=== PATIENT | female | born 1960 | race Caucasian/White ===

== ENCOUNTER → 2016-07-18 | Outpatient (CLI) | payer OTHER ==
--- NOTE | 2016-07-18 18:33 | Diagnostic Imaging Report ---
PET/CT INDICATION: Lung cancer to the prior TECHNIQUE: After intravenous administration of 14.39 mCi of F18-FDG, a series of overlapping emission and transmission PET images was obtained. In the coronal, transaxial and sagittal planes, the area imaged extended from the skull base through the upper thighs. FINDINGS: There are no previous PET/CT or cross-sectional imaging studies are available for comparison. Reportedly, the patient has a diagnosis of lung cancer of the right upper lobe. On this study, there is a spiculated hypermetabolic mass in the right mid lung measuring approximately 1.8 x 2.0 cm. This mass has a maximum SUV of 9.6 and should be considered neoplastic until proven otherwise. There is also a small focus of slightly increased activity in the right hilum. This has a maximum SUV of 3.6. This finding is suspicious but not conclusive for neoplasm. There is no other hypermetabolic activity to suggest the presence of neoplasm. The CT images do show that there is a diffuse alveolar/interstitial infiltrate involving the right mid lung in the area of the spiculated mass. Most likely, this is due to pneumonia/atelectasis. The lungs are otherwise clear. There is a 1.4 cm rounded area of low density in the left lobe of the thyroid. This finding is not hypermetabolic and consequently most likely benign. The intracranial contents, where visualized, are unremarkable. There are small air-fluid levels in each maxillary antrum consistent with sinusitis. IMPRESSION: 1. There is a hypermetabolic spiculated mass in the right mid lung. This finding should be considered neoplastic until proven otherwise. 2. The small focus of slightly increased metabolic activity in the right hilum is suspicious but not conclusive for neoplastic disease. There is no other hypermetabolic activity to suggest metastatic disease. 3. There is pneumonia/atelectasis about the spiculated mass in the right mid lung. There is no acute abnormality identified otherwise. Dictated by: Dictated on workstation # [id number]
== END ==
LOC: RAD 10:26
PROVIDERS: ATTEND Internal Medicine Hematology & Oncology
DX: C34.90 Malignant neoplasm of unspecified part of unspecified bronchus or lung (principal)

== ENCOUNTER 2016-07-27 13:08 | Outpatient (RCR) | payer OTHER ==
--- OUTSIDE RECORDS SUMMARY | 2016-07-12 09:29 | XMS REPORT ---
Author Author [facility] Organization [facility] Address [address], [place] [address] Phone [phone] Care Team Providers Care Concrete Laborer Name Role Phone ANDREW CHRISTIANSON, JOSE ANGEL PP [phone] JOSE ANGEL MORALES MD, PP [phone] Summary purpose TRANSITION OF CARE AUTO GENERATION Chief Complaint and Reason for Visit Admit Diagnosis 1 PNE HYPOXIA Problem list No authorized problems tracked for continuity of care are available for this visit. Encounters The following conditions tracked for encounter diagnoses were recorded for this visit: Finding or Diagnosis Status Certainty Chronicity Onset *PNEUMONIA Active Medications No medications recorded for this patient visit Allergies, adverse reactions, alerts Allergen Category Ingredient Status Reaction Severity Onset No known drug allergies No known drug allergies No known drug allergies Confirmed or Verified Immunizations No immunizations recorded for this patient visit Relevant diagnostic tests and/or laboratory data RESULTS [id number]:53:00 Discharge Summary DISCHARGE SUMMARY HISTORY:This 54-year-old female presented to the emergency room with difficulty breathing, head congestion, sore throat, wheezing. PHYSICAL EXAMINATION:Upon admission:VITAL SIGNS:Temperature 98.3, pulse 95, blood pressure 109/70, respirations 20, and oxygen saturation 95% on 2 liters. HEENT:Clear. No frontal or maxillary sinus tenderness. NECK:Without adenopathy. LUNGS:Reveal expiratory wheezes bilaterally. No rales, rhonchi or retractions. HEART:Normal sinus rhythm. ABDOMEN:Soft and nontender. EXTREMITIES: Without edema. LABORATORY/X-RAY/ELECTROCARDIOGRAM DATA: CBC showed white count 10,000, hemoglobin 15.2. Chemistries showed electrolytes to be normal. Potassium of 3.3. Lactic acid 0.9. Blood cultures x2 showed no growth at 24 hours. Urinalysis was clear Mycoplasma was negative. Chest x-ray was clear. HOSPITAL COURSE: Following admission, the patient was started on intravenous fluids and Solu-Medrol and azithromycin and DuoNeb treatments.She was also started on 1 gram Rocephin IV daily. The patient noted significant improvement in her breathing status over the 24 hours of her hospitalization. She still had mild expiratory wheezing at the time of discharge. Her oxygen saturations dropped into the mid 80s with ambulation, but when she stopped walking, they returned to the mid 90s. The patient has been advised to discontinue smoking. MEDICATIONS: She is being discharged on Levaquin 500 milligrams daily for 7 days, tapering dose of prednisone 60 for 2 days, 40 mg for 3 days, 20 mg for 3 days, and 10 mg for 3 days. She will be seen in clinic in followup in a week. She will be continued on albuterol by nebulizer every 4 hours while awake and as needed at night. DIAGNOSES: 1. Acute bronchitis. 2. Exacerbation of chronic obstructive pulmonary disease. MD MARY Acosta/carlos 03/27/2015 09:53:11/03/27/2015 10:29:13 Clinic Code: cc: <START [facility] [address] [place] [address] <END HEADER> Routine Urinalysis [id number]:45:00 Result Normal Range Units Color YELLOW Clarity Clear Specific [place] 1.020 1.003-1.035 pH 5.5 4.5-8.0 Glucose NEGATIVE Bilirubin NEGATIVE Ketones 2+ Protein NEGATIVE Urobilinogen 0.2 0-0.2 E.U./dL Nitrites NEGATIVE Blood NEGATIVE Leukocytes NEGATIVE WBCs 0-5 RBCs 0-5 Squamous Epithelial Few Bacteria Occasional Blood Cultures [id number]:35:00 Blood Culture Plate Date and Time 03/25/2015 02:44 SourceBLOOD CULTURE REPORT NoGrowth at 1 day. Unless otherwise notified. Final report in 5 Days. Release Date/Time: 03/26/2015 10:45 CULTURE REPORT No growth in 5 days. Release Date/Time: 03/30/2015 06:24 [id number] Blood Culture Plate Date and Time 03/25/2015 02:44 SourceBLOOD CULTURE REPORT NoGrowth at 1 day. Unless otherwise notified. Final report in 5 Days. Release Date/Time: 03/26/2015 10:45 LEFT AC CULTURE REPORT No growth in 5 days. Release Date/Time: 03/30/2015 06:25 LEFT AC Chemistry :30:00 Result Normal Range Units Sodium 142 134-145 mEq/l Potassium L 3.3 3.5-5.1 mEq/l Chloride 101 98-107 mEq/l CO2 H 30.2 22-28 mEq/l Glucose H 107 70-105 mg/dl BUN 8 7-18 mg/dl Creatinine 0.75 0.6-1.0 mg/dl Calcium L 8.3 8.4-10.2 mg/dl TP - Total Protein 7.0 6.0-8.3 g/dl Albumin 3.5 3.5-5 g/dl Bilirubin - Total 0.4 0.1-1.0 mg/dl AST 16 10-42 IU/L ALT 20 12-65 IU/L ALP H 100 25-72 IU/L Osmolality 281.9 280-300 mOsm/L Albumin/Globulin Ratio 1.0 0-8 Anion GAP 10.8 8-16 BUN/Creatinine Ratio 10.7 10-20 Estimated GFR 80 >=60 mL/min/1.7 Lactic Acid 0.9 0.4-2.0 mmol/L Hematology :30:00 Result Normal Range Units WBC 10.0 4.8-10.8 103/uL RBC 4.5 4.2-5.4 106/uL HGB 15.2 12.0-16.0 g/dl HCT 44.8 36.9-47.0 % MCV H 100.0 81-99 FL MCH H 33.9 27-31 pg MCHC 33.9 33-37 g/dl RDW 12.0 11.5-15.5 % PLT 240 130-400 103/uL MPV 8.1 7.3-10.4 FL Neutro % H 70.9 40-70 % Lymph % L 16.7 20-40 % Smyth % 7.6 0-10.0 % Eos % 3.3 0-7.0 % Baso % 0.7 0-2 % Neutro # 7.1 1.5-7.5 103/uL Lymph # 1.7 0.9-4.0 103/uL Smyth # 0.8 0-0.8 103/uL Eos # 0.3 0-0.6 103/uL Baso # 0.1 0-0.1 103/uL Body Fluid [id number]:45:00 Result Normal Range Units pH 5.5 4.5-8.0 Radiology Results [id number] Chest XRay - Port - 1 View PACs Image DATE OF EXAM: 2014 RAD 0292-CHEST 1 VIEW PORT : RADIOLOGY REPORT DATE OF SERVICE: 03/25/15 HISTORY: Patient has acute shortness of breath. PORTABLE ONE VIEW CHEST 0235 HOURS The heart and mediastinum are unremarkable. The lungs are clear. No effusion is seen. IMPRESSION: Negative study of the chest. No evidence of pneumonia is seen including the lung bases. Laron Milian DO /wi 03/25/2015 06:25:00 / 03/25/2015 08:32:58 cc:Dr. Jose Angel Morales This document has been electronically Signed by: On: DATE OF EXAM: 2014 RAD 0292-CHEST 1 VIEW PORT : RADIOLOGY REPORT DATE OF SERVICE: 03/25/15 HISTORY: Patient has acute shortness of breath. PORTABLE ONE VIEW CHEST 0235 HOURS The heart and mediastinum are unremarkable. The lungs are clear. No effusion is seen. IMPRESSION: Negative study of the chest. No evidence of pneumonia is seen including the lung bases. Laron Milian DO /wi 03/25/2015 06:25:00 / 03/25/2015 08:32:58 cc:Dr. Jose Angel Morales This document has been electronically Signed by: LARON MILIAN DO On: [id number] PNE HYPOXIA Result Amended on 2015-03-25 at 11:30:50. Previous status was MA. PNE HYPOXIA [id number]:30:00 Result Normal Range Units MPV 8.1 7.3-10.4 FL History of procedures Procedure Code Code Type Description Date Performed Performing Physician 90503 CPT-4 ROUTINE VENIPUNCTURE 03-25-2015 LARON NEGRON 39051 CPT-4 ROUTINE VENIPUNCTURE 03-25-2015 LARON NEGRON 34167 CPT-4 WITHDRAWAL OF ARTERIAL BLOOD 03-25-2015 [facility] 38779 CPT-4 CHEST X-RAY 03-25-2015 [facility] 94074 CPT-4 COMPREHEN METABOLIC PANEL 03-25-2015 [facility] 51036 CPT-4 URINALYSIS, AUTO W/SCOPE 03-25-2015 [facility] 71009 CPT-4 ASSAY, BLOOD CARBON MONOXIDE 03-25-2015 [facility] 71565 CPT-4 BLOOD GASES W/O2 SATURATION 03-25-2015 [facility] 91178 CPT-4 BLOOD METHEMOGLOBIN ASSAY 03-25-2015 [facility] 99982 CPT-4 ASSAY OF LACTIC ACID 03-25-2015 [facility] 00954 CPT-4 COMPLETE CBC W/AUTO DIFF WBC 03-25-2015 [facility] 18142 CPT-4 MYCOPLASMA ANTIBODY 03-25-2015 [facility] 87297 CPT-4 BLOOD CULTURE FOR BACTERIA 03-25-2015 [facility] 70771 CPT-4 AIRWAY INHALATION TREATMENT 03-25-2015 [facility] 24286 CPT-4 AIRWAY INHALATION TREATMENT 03-25-2015 [facility] 38413 CPT-4 AIRWAY INHALATION TREATMENT 03-25-2015 [facility] 87630 CPT-4 AIRWAY INHALATION TREATMENT 03-25-2015 [facility] 16614 CPT-4 MEASURE BLOOD OXYGEN LEVEL 03-25-2015 [facility] 77957 CPT-4 HYDRATE IV INFUSION, ADD-ON 03-25-2015 [facility] 08192 CPT-4 THER/PROPH/DIAG IV INF, INIT 03-25-2015 [facility] 15037 CPT-4 THER/PROPH/DIAG IV INF ADDON 03-25-2015 [facility] 36773 CPT-4 TX/PROPH/DG ADDL SEQ IV INF 03-25-2015 [facility] 94049 CPT-4 TX/PRO/DX INJ NEW DRUG ADDON 03-25-2015 [facility] 00538 CPT-4 TX/PRO/DX INJ NEW DRUG SLEEP TECHNOLOGIST 03-25-2015 [facility] 25140 CPT-4 OBSERVATION CARE 03-25-2015 [facility] 86457 CPT-4 OBSERVATION CARE 03-25-2015 [facility] 39846 CPT-4 EMERGENCY DEPT VISIT 03-25-2015 LARON NEGRON 22990 CPT-4 EMERGENCY DEPT VISIT 03-25-2015 LARON NEGRON J0456 CPT-4 AZITHROMYCIN 03-25-2015 LARON NEGRON J0696 CPT-4 CEFTRIAXONE SODM 250MG INJ 03-25-2015 [facility] J2930 CPT-4 SOLU-MEDROL 125MG VIAL 03-25-2015 KELLEE FORDE J2930 CPT-4 SOLU-MEDROL 125MG VIAL 03-25-2015 [facility] J3480 CPT-4 INJ POTASSIUM CHLORIDE 03-25-2015 KELLEE FORDE J7030 CPT-4 NORMAL SALINE SOLUTION INFUS 03-25-2015 KELLE[facility] FORDE J7042 CPT-4 5% DEXTROSE/NORMAL SALINE 03-25-2015 LARON NEGRON J7620 CPT-4 ALBUTEROL IPRATROP NON-COMP 03-25-2015 LARON NEGRON J7620 CPT-4 ALBUTEROL IPRATROP NON-COMP 03-25-2015 LARON NEGRON J7620 CPT-4 ALBUTEROL IPRATROP NON-COMP 03-25-2015 LARON NEGRON J7620 CPT-4 ALBUTEROL IPRATROP NON-COMP 03-25-2015 [facility] Functional status Functional Status Finding Observation Time Hearing Prob Loc right [id number]:53 Vision Problems yes [id number]:53 Vision Correct Dev glasses xpath-functions" xmlns:xs="http://www.FonJax.org/2001/XMLSchema" /> xpath-functions" xmlns:xs="http://www.FonJax.org/2001/XMLSchema" />Comment: reading 01-62-517656:53 Ambulation Asst Dev none [id number]:53 Range of Motion full :29 Muscle Strength RUE 5 ROM full resist :29 Muscle Strength RLE 5 ROM full resist :29 Muscle Strength LUE 5 ROM full resist :29 Muscle Strength LLE 5 ROM full resist :29 Transfers independent :29 Ambulation up ad wayne :29 Balance steady : Bathing Assistance none :53 Eating Assistance none :53 Dressing Assistance none :53 Toileting Assistance none :53 Transfer Assistance none :53 Decline Slf Care/Mob no :53 Phys Cond Stable yes :53 Nutrition normal : Diet regular : Oral Cavity moist and intact : Teeth intact : Dental Hygiene good : Abdomen Appearance flat : Abdomen non-tender : Bowel Sounds present : NG Tube no : Feeding Tube none : Ojeda no :29 Cont Bladder Irr no : Ostomy no : Stool other (specify) : Urination other (specify) :29 Quality sym/unlabored : Cough absent : Secretions no : Secretion Consist thin : Secretion Color clear : Breath Sounds RUL wheezes :57 Breath Sounds RML wheezes :57 Breath Sounds RLL wheezes :57 Breath Sounds GAIDEL wheezes :57 Breath Sounds LLL wheezes :57 Airway natural :29 Oxygen no :17 Oxygen Mask Type nasal cannula :43 Oxygen Flow Rate ra :52 C-PAP no :29 BI-PAP no :29 New Infection pneumonia : Temp >100.4 no : Temp <96.8 no :29 Chills with rigors no : HR > 90bpm no : Respirations > 20 no : Systolic <90 no : headache stiff neck no : WBC > 79518 no : WBC < 4000 no : Rapid Resp no : IV Site Location RAC : IV Type peripheral : IV Site Information discontinued : IV Site Start Attmpt 1 times :30 IV Site Jorge Luis 20 :34 IV Site Appearance WNL :34 IV Site Color clear : IV Site Patent yes :34 Dressing Changed no (explain) :34 Dressing Type occlusive :34 Nursing Note Pt discharged home in stable conditon, amb off unit to personal vehicle. :33 Cognitive Status Finding Observation Time Learning Ability comprehends well : Neurological no :25 Psychological no :25 Physical no :25 Hearing yes : Boat Carpenter Needed no : Sign Language no : Emotional no :25 Vision no :25 Laguage no :25 Financial no :25 Vital signs Type Value Date Respiration Rate 18breaths per minute : Pulse 104beats per minute :17 Oxygen Saturation 94% : BP Systolic 113mmHg :17 BP Diastolic 63mmHg :17 Temperature 99.2F :17 Height 66inches :53 Weight 139.0LB :53 Social history Type Value Smoking Status CURRENT EVERY DAY SMOKER Treatment Plan No treatment plan text is available for this visit. Hospital discharge instructions Discharge Date/Time 03/25/15 1633 Relationship spouse/signif other Dismissal Condition good Disposition on DC home Valuables yes Valuable Type billfold/joyce Valuables Returned T patient DC Inst/Educ Give yes Exit Care Educ Given yes Med/Side Effects Rev yes DC Med Rec Rev yes PNE Vac none Flu Vac 2013 Tetanus Vac unknown Diet Explained yes Follow up appt already scheduled Follow Up Appt D/T 03/30/15 1000
[2016-07-27 15:58] LABS: BASOPHILS % (AUTO) 0 % (0-10); EOSINOPHILS # (AUTO) 0.1 10^3/uL (0.0-0.3); EOSINOPHILS % (AUTO) 1 % (0-10); LYMPHOCYTES # (AUTO) 1.2 X 10^3 (1.0-4.0); LYMPHOCYTES % (AUTO) 11 % (12-44); MEAN CORPUSCULAR HEMOGLOBIN 35 PG (25-34); MEAN CORPUSCULAR HGB CONC 35 G/DL (32-36); MEAN CORPUSCULAR VOLUME 100 FL (80-99); MONOCYTES # (AUTO) 0.3 X 10^3 (0.0-1.0); MONOCYTES % (AUTO) 3 % (0-12); NEUTROPHILS # (AUTO) 9.8 X 10^3 (1.8-7.8); NEUTROPHILS % (AUTO) 85 % (42-75); PLATELET COUNT 280 10^3/uL (130-400); RED CELL DISTRIBUTION WIDTH 13.5 % (10.0-14.5); WHITE BLOOD COUNT 11.4 10^3/uL (4.3-11.0)
[2016-07-27 16:59] LABS: ALANINE AMINOTRANSFERASE 19 U/L (0-55); ALBUMIN 4.2 G/DL (3.2-4.5); ANION GAP 8 MMOL/L (5-14); ASPARTATE AMINO TRANSFERASE 15 U/L (5-34); BILIRUBIN,TOTAL 0.4 MG/DL (0.1-1.0); BLOOD UREA NITROGEN 17 MG/DL (7-18); BUN/CREATININE RATIO 25; CALCIUM 9.2 MG/DL (8.5-10.1); CARBON DIOXIDE 26 MMOL/L (21-32); CHLORIDE 103 MMOL/L (98-107); CREATININE SERUM 0.68 MG/DL (0.60-1.30); GFR ESTIMATED > 60; GLUCOSE 168 MG/DL (70-105); POTASSIUM 4.1 MMOL/L (3.6-5.0); SODIUM 137 MMOL/L (135-145); TOTAL PROTEIN 6.6 G/DL (6.4-8.2)
== END 2016-08-24 13:10 | disposition home or self-care (01) ==
LOC: PAR 13:08
PROVIDERS: ATTEND Internal Medicine Hematology & Oncology
DX: C34.11 Malignant neoplasm of upper lobe, right bronchus or lung (principal); I27.82 Chronic pulmonary embolism; B00.89 Other herpesviral infection; J44.9 Chronic obstructive pulmonary disease, unspecified; F17.210 Nicotine dependence, cigarettes, uncomplicated; Z79.01 Long term (current) use of anticoagulants; Z79.899 Other long term (current) drug therapy
CPT/HCPCS: 36415; 80053; 85025; 99213; 99214

== ENCOUNTER → 2016-08-29 | Outpatient (CLI) | payer BC, OTHER ==
--- OUTSIDE RECORDS SUMMARY | 2016-08-29 13:56 | XMS REPORT | Continuity of Care Document ---
Author Author [facility] Organization [facility] Address Unknown Phone Unavailable Care Team Providers Care Helicopter Specialist Name Role Phone PCP Unavailable Source Comments Some departments are not documenting in the electronic medical record. If you do not see the information that you expected, contact Release of Information in the Health Information Management department at [phone] for further assistance in locating additional records.[facility] Active Allergies and Adverse Reactions Not on [...]
--- NOTE | 2016-08-31 07:59 | ECHOCARDIOGRAPHY REPORT ---
PROCEDURE PHYSICIAN: MARCY KEMP DATE OF PROCEDURE: 08/29/2016 TWO DIMENSIONAL ECHOCARDIOGRAM REPORT PRIMARY PHYSICIAN: OTHER PHYSICIAN: REFERRING PHYSICIAN: ORDERING PHYSICIAN: INDICATION FOR THE PROCEDURE: Abnormal EKG. MEASUREMENTS DERIVED VALUES LV DIAMETER (LAX) NORMALS NORMALS Diastolic 3.5 (3.6-5.2) Eject. Fract. 60% (60%+/-6%) Systolic (2.3-3.9) Diastolic Vol. % Shortening (0.22-0.42) Systolic Vol. Aortic Root IVS THICKNESS Diastolic 0.8 (0.6-1.1) LVPW THICKNESS Diastolic 0.8 (0.6-1.1) LA DIAMETER Systolic 2.7 (2.1-3.7) FINDINGS: 1. Technically suboptimal study. 2. The left ventricle is normal in size with normal contractility. Systolic function appeared to be normal. Estimated ejection fraction 60%. Endocardium was not well visualized in all segments. 3. The left atrium is normal in size. No clot or thrombus were seen within the left atrium. 4. The right atrium and right ventricle are normal in size. No clot or thrombus were seen within the right side. 5. Mitral valve is mildly calcified with mild mitral regurgitation noted by color Doppler flow. No mitral valve prolapse. No mitral valve stenosis. 6. Aortic valve leaflets were not well visualized. No significant aortic stenosis or regurgitation was seen. 7. Tricuspid valve is normal in morphology with mild tricuspid regurgitation noted by color Doppler flow. Doppler across tricuspid valve estimated pulmonary artery pressure of 21+ right atrial pressure. 8. Pulmonic valve is functioning normally. 9. No pericardial effusion. IN CONCLUSION: 1. Normal left ventricular size and systolic function. Estimated ejection fraction 60%. Endocardium was not well visualized in all segments. 2. Mild mitral regurgitation. Mild tricuspid regurgitation. 3. Estimated pulmonary artery pressure of 30 mmHg. Job ID: [id number] Dictated Date: 08/30/2016 16:47:30 Dentist Private Practice Date: 08/31/2016 07:55:47 / michael
== END ==
LOC: CARD 13:53
PROVIDERS: ATTEND Internal Medicine Cardiovascular Disease
DX: C34.91 Malignant neoplasm of unspecified part of right bronchus or lung (principal); I27.82 Chronic pulmonary embolism; Z82.49 Family history of ischemic heart disease and other diseases of the circulatory system; R94.31 Abnormal electrocardiogram [ECG] [EKG]; R06.02 Shortness of breath
CPT/HCPCS: 93306

== ENCOUNTER → 2016-08-30 | Outpatient (CLI) | payer BC, OTHER ==
[~2016-08-30] MED LIST: RT-ALBUTEROL SULF 2.5 MG/3 ML PRE-MIX VIAL ONE
--- OUTSIDE RECORDS SUMMARY | 2016-08-30 11:35 | XMS REPORT | Continuity of Care Document ---
Author Author [facility] Organization [facility] Address Unknown Phone Unavailable Care Team Providers Care Bend Up Name Role Phone PCP Unavailable Source Comments Some departments are not documenting in the electronic medical record. If you do not see the information that you expected, contact Release of Information in the Health Information Management department at [phone] for further assistance in locating additional records.[facility] Active Allergies and Adverse Reactions Not on [...]
== END ==
LOC: RT 11:31
PROVIDERS: ATTEND Internal Medicine Hematology & Oncology
DX: C34.11 Malignant neoplasm of upper lobe, right bronchus or lung (principal); I27.82 Chronic pulmonary embolism
CPT/HCPCS: 94060; 94640; 94726; 94729

== ENCOUNTER → 2016-08-30 | Outpatient (CLI) | payer BC, OTHER ==
[~2016-08-30] MED LIST changes: +REGADENOSON 0.4 MG/5 ML SYR (LEXISCAN) IV ONE; +RT-ALBUTEROL SULF 2.5 MG/3 ML PRE-MIX VIAL INH ONE; -RT-ALBUTEROL SULF 2.5 MG/3 ML PRE-MIX VIAL ONE
--- OUTSIDE RECORDS SUMMARY | 2016-08-30 11:30 | XMS REPORT | Continuity of Care Document ---
Author Author [facility] Organization [facility] Address Unknown Phone Unavailable Care Team Providers Care Slot Machine Repairer Name Role Phone PCP Unavailable Source Comments Some departments are not documenting in the electronic medical record. If you do not see the information that you expected, contact Release of Information in the Health Information Management department at [phone] for further assistance in locating additional records.[facility] Active Allergies and Adverse Reactions Not [...]
[2016-08-30] MEDS: CATHETER FLUSH 10 ML SYR IV PRN ×2 (12:12→13:15)
[2016-08-30 13:08] VITALS: BP 111/63
--- NOTE | 2016-08-31 10:21 | STRESS TEST ---
PROCEDURE PHYSICIAN: MARCY KEMP DATE OF PROCEDURE: 08/30/2016 LEXISCAN MYOVIEW STRESS TEST REPORT: INDICATION: Dyspnea. BASELINE HEART RATE: 90 BASELINE BLOOD PRESSURE: 111/63 BASELINE EKG: Sinus rhythm with no ischemic changes. IN SUMMARY: The patient was injected with 10.15 mCi of technetium 99 Myoview and the resting images were obtained. Then the patient received 0.4 mg of Lexiscan followed by 28.3 mCi of technetium 99 Myoview. Throughout the test, there were no EKG changes. The resting and stress images were reviewed and compared in the short axis, horizontal long axis, and vertical long axis views. Review of the images showed transient ischemic dilatation with TID value of 1.26. There is mild ischemia involving the mid to apical anterior septum and basal mid anterior wall. SSS is 6, SDS 4, TID value 1.26. On the gated images, the left ventricle is normal in size. Calculated ejection fraction 54%. IN CONCLUSION: 1. The patient tolerated Lexiscan well. 2. Transient ischemic dilatation with TID value 1.26. 3. Mild ischemia involving the basal to mid anterior septum and basal anterior wall. 4. Normal left ventricular size with normal contractility. Calculated ejection fraction 54%. Job ID: [id number] Dictated Date: 08/31/2016 07:17:01 Test Administrator Date: 08/31/2016 10:10:14 / [email or web address]
== END ==
LOC: CARD 11:27
PROVIDERS: ATTEND Internal Medicine Cardiovascular Disease
DX: R06.02 Shortness of breath (principal); R94.31 Abnormal electrocardiogram [ECG] [EKG]; I27.82 Chronic pulmonary embolism; C34.91 Malignant neoplasm of unspecified part of right bronchus or lung; Z82.49 Family history of ischemic heart disease and other diseases of the circulatory system
CPT/HCPCS: 78452; 93017

== ENCOUNTER 2016-11-09 13:15 | Outpatient (RCR) | payer BC, OTHER ==
--- OUTSIDE RECORDS SUMMARY | 2016-08-24 13:36 | XMS REPORT | Continuity of Care Document ---
Author Author [facility] Organization [facility] Address Unknown Phone Unavailable Care Team Providers Care Cordwood Cutter Helper Name Role Phone PCP Unavailable Source Comments Some departments are not documenting in the electronic medical record. If you do not see the information that you expected, contact Release of Information in the Health Information Management department at [phone] for further assistance in locating additional records.[facility] Active Allergies and Adverse Reactions Not on File Current Medications Not on file Active Problems Not on file Most Recent Encounters Date Type Specialty Providers Description 08/08/2016 Documentation Cardiothoracic Surgery Janice Cruz 08/03/2016 Ancillary Radiology Outpatient, Radiologist Diagnosis unknown Orders (Primary Dx) 08/02/2016 Ancillary Radiology Outpatient, Radiologist Diagnosis unknown Orders (Primary Dx) 08/01/2016 Orders Only Cardiothoracic Surgery VeeraRick camargo, Malignant neoplasm of MD upper lobe of right lung (HCC) (Primary Dx) 07/18/2016 Hospital Radiology Encounter 07/03/2016 Hospital Radiology Encounter Social History Tobacco Use Types Packs/Day Years Used Date Never Assessed Plan of Care Health Maintenance Due Date Last Done Comments Hepatitis C Screening 1958 Physical (Comprehensive) 1965 Exam Pertussis Vaccine 1969 Tetanus Vaccine 10/10/1975 Cervical Cancer Screening 10/10/1979 Breast Cancer Screening 1998 Colorectal Cancer 2008 Screening Influenza Vaccine 02/24/2016 Results from Last 3 Months NM PET/CT EXTERNAL IMAGING (07/18/2016) Narrative This order has been auto finalized and does not contain a result. CT CHEST EXTERNAL IMAGING (07/03/2016) Narrative This order has been auto finalized and does not contain a result.
== END 2016-11-22 | disposition home or self-care (01) ==
LOC: PAR 13:15
PROVIDERS: ATTEND Internal Medicine Hematology & Oncology
DX: C34.11 Malignant neoplasm of upper lobe, right bronchus or lung (principal); I27.82 Chronic pulmonary embolism; B00.89 Other herpesviral infection; J44.9 Chronic obstructive pulmonary disease, unspecified; F17.210 Nicotine dependence, cigarettes, uncomplicated; Z79.01 Long term (current) use of anticoagulants; Z79.899 Other long term (current) drug therapy
CPT/HCPCS: 99213

== ENCOUNTER 2017-01-09 08:19 | Outpatient (RCR) | payer BC, OTHER ==
[2016-11-28 09:56] LABS: BASOPHILS % (AUTO) 0 % (0-10); EOSINOPHILS % (AUTO) 0 % (0-10); LYMPHOCYTES # (AUTO) 0.6 X 10^3 (1.0-4.0); LYMPHOCYTES % (AUTO) 7 % (12-44); MEAN CORPUSCULAR HGB CONC 34 G/DL (32-36); MEAN CORPUSCULAR VOLUME 102 FL (80-99); MEAN PLATELET VOLUME 7.8 FL (7.4-10.4); MONOCYTES # (AUTO) 0.1 X 10^3 (0.0-1.0); MONOCYTES % (AUTO) 1 % (0-12); NEUTROPHILS # (AUTO) 8.2 X 10^3 (1.8-7.8); NEUTROPHILS % (AUTO) 92 % (42-75); PLATELET COUNT 260 10^3/uL (130-400); RED BLOOD COUNT 4.32 10^6/uL (4.35-5.85); RED CELL DISTRIBUTION WIDTH 13.7 % (10.0-14.5); WHITE BLOOD COUNT 8.9 10^3/uL (4.3-11.0)
[2016-11-28 09:57] LABS: MEAN CORPUSCULAR HEMOGLOBIN 34 PG (25-34)
[2016-11-28 10:22] LABS: ALANINE AMINOTRANSFERASE 18 U/L (0-55); ALBUMIN 4.4 G/DL (3.2-4.5); ANION GAP 11 MMOL/L (5-14); ASPARTATE AMINO TRANSFERASE 14 U/L (5-34); BILIRUBIN,TOTAL 0.3 MG/DL (0.1-1.0); BLOOD UREA NITROGEN 23 MG/DL (7-18); BUN/CREATININE RATIO 28; CALCIUM 9.5 MG/DL (8.5-10.1); CARBON DIOXIDE 23 MMOL/L (21-32); CHLORIDE 104 MMOL/L (98-107); CREATININE SERUM 0.81 MG/DL (0.60-1.30); GFR ESTIMATED > 60; GLUCOSE 159 MG/DL (70-105); SODIUM 138 MMOL/L (135-145); TOTAL PROTEIN 7.3 G/DL (6.4-8.2)
[2016-12-04 09:23] LABS: BASOPHILS % (AUTO) 0 % (0-10); EOSINOPHILS % (AUTO) 0 % (0-10); LYMPHOCYTES # (AUTO) 0.4 X 10^3 (1.0-4.0); LYMPHOCYTES % (AUTO) 5 % (12-44); MEAN CORPUSCULAR HEMOGLOBIN 35 PG (25-34); MEAN CORPUSCULAR HGB CONC 34 G/DL (32-36); MEAN CORPUSCULAR VOLUME 101 FL (80-99); MEAN PLATELET VOLUME 8.2 FL (7.4-10.4); MONOCYTES # (AUTO) 0.1 X 10^3 (0.0-1.0); MONOCYTES % (AUTO) 1 % (0-12); NEUTROPHILS # (AUTO) 7.6 X 10^3 (1.8-7.8); NEUTROPHILS % (AUTO) 95 % (42-75); PLATELET COUNT 267 10^3/uL (130-400); RED BLOOD COUNT 4.34 10^6/uL (4.35-5.85); RED CELL DISTRIBUTION WIDTH 13.7 % (10.0-14.5)
[2016-12-04 10:41] LABS: ANION GAP 13 MMOL/L (5-14); BLOOD UREA NITROGEN 19 MG/DL (7-18); BUN/CREATININE RATIO 26; CALCIUM 9.1 MG/DL (8.5-10.1); CARBON DIOXIDE 21 MMOL/L (21-32); CHLORIDE 102 MMOL/L (98-107); CREATININE SERUM 0.73 MG/DL (0.60-1.30); GFR ESTIMATED > 60; GLUCOSE 193 MG/DL (70-105); POTASSIUM 4.3 MMOL/L (3.6-5.0); SODIUM 136 MMOL/L (135-145)
[2016-12-11 09:27] LABS: BASOPHILS % (AUTO) 0 % (0-10); EOSINOPHILS % (AUTO) 0 % (0-10); LYMPHOCYTES # (AUTO) 0.5 X 10^3 (1.0-4.0); LYMPHOCYTES % (AUTO) 6 % (12-44); MEAN CORPUSCULAR HEMOGLOBIN 35 PG (25-34); MEAN CORPUSCULAR HGB CONC 34 G/DL (32-36); MEAN CORPUSCULAR VOLUME 102 FL (80-99); MEAN PLATELET VOLUME 8.2 FL (7.4-10.4); MONOCYTES # (AUTO) 0.1 X 10^3 (0.0-1.0); MONOCYTES % (AUTO) 1 % (0-12); NEUTROPHILS # (AUTO) 7.6 X 10^3 (1.8-7.8); NEUTROPHILS % (AUTO) 93 % (42-75); PLATELET COUNT 276 10^3/uL (130-400); RED BLOOD COUNT 4.18 10^6/uL (4.35-5.85); RED CELL DISTRIBUTION WIDTH 13.6 % (10.0-14.5); WHITE BLOOD COUNT 8.1 10^3/uL (4.3-11.0)
[2016-12-11 09:47] LABS: ANION GAP 9 MMOL/L (5-14); BLOOD UREA NITROGEN 15 MG/DL (7-18); BUN/CREATININE RATIO 21 (0-20); CALCIUM 9.5 MG/DL (8.5-10.1); CARBON DIOXIDE 27 MMOL/L (21-32); CHLORIDE 104 MMOL/L (98-107); CREATININE SERUM 0.73 MG/DL (0.60-1.30); GFR ESTIMATED > 60; GLUCOSE 138 MG/DL (70-105); HEMOLYSIS 21 (-100-29); ICTERUS 0.5 (-100-1.9); LIPEMIA 7 (-100-49); POTASSIUM 4.2 MMOL/L (3.6-5.0); SODIUM 140 MMOL/L (135-145)
[2016-12-18 10:13] LABS: BASOPHILS % (AUTO) 1 % (0-10); EOSINOPHILS % (AUTO) 1 % (0-10); LYMPHOCYTES # (AUTO) 1.1 X 10^3 (1.0-4.0); LYMPHOCYTES % (AUTO) 16 % (12-44); MEAN CORPUSCULAR HGB CONC 35 G/DL (32-36); MEAN CORPUSCULAR VOLUME 102 FL (80-99); MONOCYTES # (AUTO) 0.5 X 10^3 (0.0-1.0); MONOCYTES % (AUTO) 8 % (0-12); NEUTROPHILS # (AUTO) 4.8 X 10^3 (1.8-7.8); NEUTROPHILS % (AUTO) 74 % (42-75); PLATELET COUNT 258 10^3/uL (130-400); RED BLOOD COUNT 4.06 10^6/uL (4.35-5.85); RED CELL DISTRIBUTION WIDTH 14.5 % (10.0-14.5); WHITE BLOOD COUNT 6.5 10^3/uL (4.3-11.0)
[2016-12-18 10:15] LABS: MEAN CORPUSCULAR HEMOGLOBIN 35 PG (25-34)
[2016-12-18 10:45] LABS: ALANINE AMINOTRANSFERASE 22 U/L (0-55); ALBUMIN 4.3 GM/DL (3.2-4.5); ANION GAP 9 MMOL/L (5-14); ASPARTATE AMINO TRANSFERASE 20 U/L (5-34); BILIRUBIN,TOTAL 0.6 MG/DL (0.1-1.0); BLOOD UREA NITROGEN 16 MG/DL (7-18); BUN/CREATININE RATIO 24 (0-20); CALCIUM 9.3 MG/DL (8.5-10.1); CARBON DIOXIDE 27 MMOL/L (21-32); CHLORIDE 103 MMOL/L (98-107); CREATININE SERUM 0.68 MG/DL (0.60-1.30); GFR ESTIMATED > 60; GLUCOSE 105 MG/DL (70-105); HEMOLYSIS 17 (-100-29); ICTERUS 0.9 (-100-1.9); LIPEMIA 5 (-100-49); MAGNESIUM 2.1 MG/DL (1.8-2.4); POTASSIUM 3.6 MMOL/L (3.6-5.0); SODIUM 139 MMOL/L (135-145); TOTAL PROTEIN 7.2 GM/DL (6.4-8.2)
[2016-12-27 09:23] LABS: BASOPHILS # (AUTO) 0.1 10^3/uL (0.0-0.1); BASOPHILS % (AUTO) 1 % (0-10); EOSINOPHILS % (AUTO) 0 % (0-10); LYMPHOCYTES # (AUTO) 1.3 X 10^3 (1.0-4.0); LYMPHOCYTES % (AUTO) 14 % (12-44); MEAN CORPUSCULAR HEMOGLOBIN 35 PG (25-34); MEAN CORPUSCULAR HGB CONC 34 G/DL (32-36); MEAN CORPUSCULAR VOLUME 103 FL (80-99); MEAN PLATELET VOLUME 7.7 FL (7.4-10.4); MONOCYTES # (AUTO) 0.9 X 10^3 (0.0-1.0); MONOCYTES % (AUTO) 10 % (0-12); NEUTROPHILS % (AUTO) 75 % (42-75); PLATELET COUNT 235 10^3/uL (130-400); RED BLOOD COUNT 4.01 10^6/uL (4.35-5.85); RED CELL DISTRIBUTION WIDTH 15.2 % (10.0-14.5); WHITE BLOOD COUNT 9.3 10^3/uL (4.3-11.0)
[2016-12-27 09:44] LABS: ANION GAP 11 MMOL/L (5-14); BLOOD UREA NITROGEN 14 MG/DL (7-18); BUN/CREATININE RATIO 20; CALCIUM 9.4 MG/DL (8.5-10.1); CARBON DIOXIDE 25 MMOL/L (21-32); CHLORIDE 102 MMOL/L (98-107); GFR ESTIMATED > 60; GLUCOSE 116 MG/DL (70-105); POTASSIUM 4.2 MMOL/L (3.6-5.0); SODIUM 138 MMOL/L (135-145)
[2017-01-02 09:09] LABS: BASOPHILS # (AUTO) 0.1 10^3/uL (0.0-0.1); BASOPHILS % (AUTO) 1 % (0-10); EOSINOPHILS % (AUTO) 0 % (0-10); LYMPHOCYTES # (AUTO) 1.3 X 10^3 (1.0-4.0); LYMPHOCYTES % (AUTO) 14 % (12-44); MEAN CORPUSCULAR HEMOGLOBIN 36 PG (25-34); MEAN CORPUSCULAR HGB CONC 34 G/DL (32-36); MEAN CORPUSCULAR VOLUME 104 FL (80-99); MEAN PLATELET VOLUME 7.6 FL (7.4-10.4); MONOCYTES # (AUTO) 0.7 X 10^3 (0.0-1.0); MONOCYTES % (AUTO) 8 % (0-12); NEUTROPHILS # (AUTO) 6.8 X 10^3 (1.8-7.8); NEUTROPHILS % (AUTO) 77 % (42-75); PLATELET COUNT 219 10^3/uL (130-400); RED CELL DISTRIBUTION WIDTH 15.5 % (10.0-14.5); WHITE BLOOD COUNT 8.8 10^3/uL (4.3-11.0)
[2017-01-02 09:38] LABS: ANION GAP 11 MMOL/L (5-14); BLOOD UREA NITROGEN 13 MG/DL (7-18); BUN/CREATININE RATIO 19; CALCIUM 9.3 MG/DL (8.5-10.1); CARBON DIOXIDE 25 MMOL/L (21-32); CHLORIDE 102 MMOL/L (98-107); CREATININE SERUM 0.68 MG/DL (0.60-1.30); GFR ESTIMATED > 60; GLUCOSE 124 MG/DL (70-105); SODIUM 138 MMOL/L (135-145)
[2017-01-08 09:05] LABS: BASOPHILS # (AUTO) 0.1 10^3/uL (0.0-0.1); BASOPHILS % (AUTO) 1 % (0-10); EOSINOPHILS % (AUTO) 0 % (0-10); LYMPHOCYTES # (AUTO) 1.5 X 10^3 (1.0-4.0); LYMPHOCYTES % (AUTO) 16 % (12-44); MEAN CORPUSCULAR HEMOGLOBIN 37 PG (25-34); MEAN CORPUSCULAR HGB CONC 35 G/DL (32-36); MEAN CORPUSCULAR VOLUME 105 FL (80-99); MEAN PLATELET VOLUME 7.7 FL (7.4-10.4); MONOCYTES # (AUTO) 0.7 X 10^3 (0.0-1.0); MONOCYTES % (AUTO) 7 % (0-12); NEUTROPHILS # (AUTO) 7.5 X 10^3 (1.8-7.8); NEUTROPHILS % (AUTO) 76 % (42-75); PLATELET COUNT 272 10^3/uL (130-400); RED BLOOD COUNT 3.57 10^6/uL (4.35-5.85); RED CELL DISTRIBUTION WIDTH 15.9 % (10.0-14.5); WHITE BLOOD COUNT 9.8 10^3/uL (4.3-11.0)
[2017-01-08 09:51] LABS: ALANINE AMINOTRANSFERASE 20 U/L (0-55); ALBUMIN 3.9 GM/DL (3.2-4.5); ANION GAP 11 MMOL/L (5-14); ASPARTATE AMINO TRANSFERASE 15 U/L (5-34); BILIRUBIN,TOTAL 0.3 MG/DL (0.1-1.0); BLOOD UREA NITROGEN 17 MG/DL (7-18); BUN/CREATININE RATIO 24; CALCIUM 9.4 MG/DL (8.5-10.1); CARBON DIOXIDE 28 MMOL/L (21-32); CHLORIDE 97 MMOL/L (98-107); CREATININE SERUM 0.71 MG/DL (0.60-1.30); GFR ESTIMATED > 60; GLUCOSE 125 MG/DL (70-105); POTASSIUM 4.5 MMOL/L (3.6-5.0); SODIUM 136 MMOL/L (135-145)
[~2017-01-09] VITALS: Ht 167.6 cm; Wt 62.6 kg
[~2017-01-09 08:19] MED LIST changes: +CARBOPLATIN 160 MG in D5W 50 ML IV(CANCER CTR) 50 ML IV SCH; +FAMOTIDINE 20MG/2ML IV (CANCER CTR) IV SCH; +NS IV 500 ML (CANCER CENTER) IV SCH; +ONDANSETRON 16 MG, DEXAMETHASONE 10 MG/NS 50 ML IVPB IV SCH; +PACLITAXEL 80 MG in NORMAL SALINE (CANCER CENTER) 250 ML IV SCH; -REGADENOSON 0.4 MG/5 ML SYR (LEXISCAN) IV ONE; -RT-ALBUTEROL SULF 2.5 MG/3 ML PRE-MIX VIAL INH ONE; +diphenhydrAMINE 25 MG TAB (BENADRYL) CANCER CENTER PO SCH; +diphenhydrAMINE 50 MG/ML INJ (CANCER CENTER) IV PRN
== END 2017-01-29 | disposition home or self-care (01) ==
LOC: ONC 08:19
PROVIDERS: ATTEND Internal Medicine Hematology & Oncology
DX: C34.11 Malignant neoplasm of upper lobe, right bronchus or lung (principal); Z51.0 Encounter for antineoplastic radiation therapy; Z51.11 Encounter for antineoplastic chemotherapy
CPT/HCPCS: 36415; 77280; 77290; 77295; 77332; 77334; 77336; 77417; 77470; 80048; 80053; 83735; 85025; 96375; 96413; 96417; 99213; 99214

== ENCOUNTER 2017-02-06 15:09 | Outpatient (RCR) | payer BC, OTHER | END 2017-03-24 | disposition home or self-care (01) | LOC: ONC 15:09 | PROVIDERS: ATTEND Internal Medicine Hematology & Oncology | DX: C34.11 Malignant neoplasm of upper lobe, right bronchus or lung (principal) | CPT/HCPCS: 99213 ==

== ENCOUNTER → 2017-02-22 | Outpatient (CLI) | payer BC, OTHER | LOC: EDSTATUS 11-23 11:41 → PAR 13:30 | PROVIDERS: ATTEND Internal Medicine Hematology & Oncology | DX: C34.11 Malignant neoplasm of upper lobe, right bronchus or lung (principal); I27.82 Chronic pulmonary embolism; B00.89 Other herpesviral infection; J44.9 Chronic obstructive pulmonary disease, unspecified; F17.210 Nicotine dependence, cigarettes, uncomplicated; Z79.01 Long term (current) use of anticoagulants; Z79.899 Other long term (current) drug therapy | CPT/HCPCS: 99213 ==

== ENCOUNTER 2017-05-08 12:57 | Outpatient (RCR) | payer BC, OTHER ==
[2017-05-01 09:33] LABS: BASOPHILS % (AUTO) 1 % (0-10); EOSINOPHILS # (AUTO) 0.1 10^3/uL (0.0-0.3); EOSINOPHILS % (AUTO) 1 % (0-10); HEMATOCRIT 41 % (35-52); HEMOGLOBIN 15.2 G/DL (11.5-16.0); LYMPHOCYTES # (AUTO) 2.2 X 10^3 (1.0-4.0); LYMPHOCYTES % (AUTO) 31 % (12-44); MEAN CORPUSCULAR HEMOGLOBIN 38 PG (25-34); MEAN CORPUSCULAR HGB CONC 37 G/DL (32-36); MEAN CORPUSCULAR VOLUME 102 FL (80-99); MEAN PLATELET VOLUME 7.9 FL (7.4-10.4); MONOCYTES # (AUTO) 0.6 X 10^3 (0.0-1.0); MONOCYTES % (AUTO) 8 % (0-12); NEUTROPHILS # (AUTO) 4.4 X 10^3 (1.8-7.8); NEUTROPHILS % (AUTO) 60 % (42-75); PLATELET COUNT 213 10^3/uL (130-400); RED BLOOD COUNT 4.05 10^6/uL (4.35-5.85); WHITE BLOOD COUNT 7.3 10^3/uL (4.3-11.0)
[2017-05-01 09:52] LABS: ALANINE AMINOTRANSFERASE 19 U/L (0-55); ALBUMIN 4.2 GM/DL (3.2-4.5); ALKALINE PHOSPHATASE 90 U/L (40-136); BILIRUBIN,TOTAL 0.5 MG/DL (0.1-1.0); BUN/CREATININE RATIO 20; CARBON DIOXIDE 26 MMOL/L (21-32); CHLORIDE 104 MMOL/L (98-107); GFR ESTIMATED > 60; GLUCOSE 104 MG/DL (70-105); POTASSIUM 3.5 MMOL/L (3.6-5.0); SODIUM 142 MMOL/L (135-145); TOTAL PROTEIN 6.9 GM/DL (6.4-8.2)
== END 2017-07-30 | disposition home or self-care (01) ==
LOC: ONC 12:57
PROVIDERS: ATTEND Internal Medicine Hematology & Oncology
DX: C34.11 Malignant neoplasm of upper lobe, right bronchus or lung (principal); I27.82 Chronic pulmonary embolism; B00.89 Other herpesviral infection; J44.9 Chronic obstructive pulmonary disease, unspecified; F17.210 Nicotine dependence, cigarettes, uncomplicated; Z79.01 Long term (current) use of anticoagulants; Z79.899 Other long term (current) drug therapy
CPT/HCPCS: 36415; 80053; 85025; 99213